=== PATIENT | female | born 1940 | race Caucasian/White ===

== ENCOUNTER 2017-02-24 14:00 | Emergency (ER) | payer MEDICARE ==
[2017-02-24 16:51] VITALS: BP 143/80
--- NOTE | 2017-02-24 17:20 | UC ---
Throat Pain/Nasal Aron HPI - HPI Summary HPI Summary: complaint of nasal congestion and cough that started on 02/13/17 coughing up green sputum face hurts and forehead feels tender denies fever or chills cough is worse at night has tried mucinex and tylenol PM without relief - History of Current Complaint Chief Complaint: UCRespiratory Stated Complaint: COUGH SORE THROAT Time Seen by Provider: 02/24/17 17:12 Hx Obtained From: Patient - Allergies/Home Medications Allergies/Adverse Reactions: Allergies Allergy/AdvReac Type Severity Reaction Status Date / Time Amoxicillin Allergy Unknown Verified 02/24/17 14:52 Reaction Details Cefaclor [From Ceclor] Allergy Unknown Verified 02/24/17 14:52 Reaction Details Home Medications: Home Medications Ascorbic Acid TAB* [Vitamin C TAB*] 1,000 mg PO DAILY 02/24/17 [History Confirmed 02/24/17] Calcium Carbonate [Calci-Chew] 1 chw PO DAILY 02/24/17 [History Confirmed ] Coenzyme Q10 (Ubidecarenone) [Coq-10] 100 mg PO DAILY 02/24/17 [History Confirmed 02/24/17] Ezetimibe TAB* [Zetia TAB*] 10 mg PO DAILY 02/24/17 [History Confirmed 02/24/17] Multivitamins/Minerals TAB* [Theragran/minerals TAB*] 1 tab PO DAILY 02/24/17 [ History Confirmed 02/24/17] Omeprazole CAP* [Prilosec CAP* 20 MG] 20 mg PO DAILY 02/24/17 [History Confirmed 02/24/17] PMH/Surg Hx/FS Hx/Imm Hx Previously Healthy: Yes Endocrine History Of: Denies: Diabetes, Thyroid Disease Cardiovascular History Of: Reports: Cardiac Disorders - Cath, Hypertension Respiratory History Of: Denies: COPD, Asthma - Surgical History Surgical History: Yes Surgery Procedure, Year, and Place: Right TKA. Appendectomy. Laparoscopy. Hysterectomy - Family History Known Family History: Positive: Hypertension Negative: Cardiac Disease, Diabetes - Social History Occupation: Retired Lives: With Family Alcohol Use: Weekly Alcohol Amount: A few glasses of red wine per week Substance Use Type: None Smoking Status (MU): Former Smoker Type: Cigarettes Length of Time of Smoking/Using Tobacco: 1966 Have You Smoked in the Last Year: No Review of Systems Constitutional: Negative Skin: Negative Eyes: Negative ENT: Sore Throat, Nasal Discharge Respiratory: Cough Cardiovascular: Negative Gastrointestinal: Negative Genitourinary: Negative Motor: Negative Neurovascular: Negative Musculoskeletal: Negative Neurological: Negative Psychological: Negative All Other Systems Reviewed And Are Negative: Yes Physical Exam Triage Information Reviewed: Yes Appearance: No Pain Distress, Well-Nourished Vital Signs: Initial Vital Signs Temp 98.8 F 02/24/17 14:50 Pulse 107 02/24/17 14:50 Resp 18 02/24/17 14:50 BP 167/78 02/24/17 14:50 Pulse Ox 98 02/24/17 14:50 Vital Signs Reviewed: Yes Eyes: Positive: Conjunctiva Clear ENT: Positive: Pharyngeal erythema, Nasal congestion, Nasal drainage, TMs normal , Other: - frontal and maxillary sinus tenderness Neck: Positive: No Lymphadenopathy Respiratory: Positive: Lungs clear, Normal breath sounds, No respiratory distress, No accessory muscle use Cardiovascular: Positive: No Murmur, Pulses Normal, Tachycardia Abdomen Description: Positive: Nontender, Soft Bowel Sounds: Positive: Present Musculoskeletal: Positive: No Edema Neurological: Positive: Alert Psychological Exam: Normal Skin Exam: Normal Throat Pain/Nasal Course/Dx - Differential Dx/Diagnosis Differential Diagnosis/HQI/PQRI: Pharyngitis, Sinusitis, Tonsillitis, URI Provider Diagnoses: sinusitis. elevated blood pressure Discharge - Discharge Plan Condition: Stable Disposition: HOME Prescriptions: Azithromycin TAB* [Zithromax TAB (Z-MACARENA) 250 mg #6 tabs] 2 tab PO .TODAY, THEN 1 DAILY #1 macarena Benzonatate CAP* [Tessalon 100 MG CAP*] 100 mg PO TID #30 cap Patient Education Materials: Sinusitis (ED) Referrals: Nancy Sheth MD [Primary Care Provider] - Additional Instructions: Please start antibiotic as directed Increase fluids and rest Take acetaminophen or ibuprofen for fever or pain Please review your discharge instructions. If your symptoms do not improve please call your primary care provider or return to urgent care Your blood pressure is elevated. Please contact your primary care provider within 1 -4 weeks for further evaluation
== END 2017-02-24 17:37 | disposition home or self-care (01) ==
LOC: UCEAST 14:00
DX: J32.9 Chronic sinusitis, unspecified (principal); I10 Essential (primary) hypertension; Z88.1 Allergy status to other antibiotic agents; Z87.891 Personal history of nicotine dependence
CPT/HCPCS: 99212; G0463